=== PATIENT | female | born 1945 | race Two or more races ===

== ENCOUNTER 2020-11-30 12:04 | Outpatient (REF) | payer MEDICARE, SELFPAY ==
--- NOTE | 2020-11-30 12:12 | XR_ITS ---
EXAMINATION: XR CHEST CLINICAL INFORMATION: R06.02 - Shortness of breath. History COVID. COMPARISON: Outside chest radiographs 10/20/2020, 03/03/2020, and outside CTA chest 10/20/2020 ([facility]). TECHNIQUE: 2 views of the chest were obtained. FINDINGS: There is patchy bilateral scattered groundglass opacities predominantly mid and lower zones with apical sparing and slightly greater on right. Findings are decreased from prior outside exam 10/20/2020. Heart is borderline enlarged. The vascularity is normal. There is no effusion. The hilar and mediastinal contours and bony structures are unremarkable. XR/XR chest 2V IMPRESSION: Patchy bilateral scattered groundglass opacities decreased from prior outside imaging 10/20/2020.
== END 2020-11-30 12:05 | disposition home or self-care (01) ==
LOC: HO.HMGCX 12:04
PROVIDERS: PCP Internal Medicine; Visit Provider Nurse Practitioner Family
DX: R06.02 Shortness of breath (principal)
CPT/HCPCS: 71046

== ENCOUNTER 2020-11-30 13:06 | Emergency (ER) | payer MEDICARE, SELFPAY ==
[2020-11-30 13:24] VITALS: BP 141/86; PULSE 86; RESP 22; TEMP 37.4; O2SAT 90; BMI 12.3
--- NOTE | 2020-11-30 13:36 | CT_ITS ---
EXAMINATION: CT CHEST AND CT ABDOMEN PELVIS WITHOUT CONTRAST. CLINICAL INFORMATION: Right flank pain. Right-sided chest pain. COMPARISON: Chest x-ray performed today at 11/30/2011 CTA chest 10/20/2020 TECHNIQUE: 5 mm thin axial and reformatted 3 mm thin sagittal and coronal images of chest, abdomen and pelvis were obtained without contrast. DLP 1000 mGy FINDINGS: Chest: The lungs are hyperinflated with diffuse interstitial thickening, scattered parenchymal opacity, subpleural reticular changes and patchy groundglass attenuation. This findings have improved since CT chest 10/20/2020. Findings are consistent with chronic inflammatory changes. No acute pneumonic new consolidation, mass or significant pulmonary nodular disease seen. The heart size is enlarged with coronary artery calcifications. There is normal aeration of the trachea and bronchi. No abnormal size mediastinal lymph nodes seen. No pericardial effusion seen. The thyroid lobes are symmetrical. There is no pleural effusion or thickening. There is no abnormal axillary lymph nodes. The chest wall appears unremarkable. Abdomen and pelvis: The liver is homogeneous in density, normal size and contour without focal lesion. No intrahepatic ductal dilatation seen either. The gallbladder has been surgically removed. Visualized spleen, pancreas and adrenal glands are unremarkable. Both kidneys are normal size, shape and position. There are no radiopaque renal calculi or hydronephrosis. The abdominal aorta is normal caliber. No retroperitoneal lymph nodes or mass seen. There is scattered stool and gas seen throughout the colon without significant distention. The small bowel loops are normal caliber. The stomach is nondistended. Appendix is not seen. The abdominal wall appears unremarkable. Imaging to the pelvis reveals no significant abnormality. Bone windows reveal moderate spondylosis mid thoracic spine. There is L3, L4 and L5 posterior vertebral fusion with hardware in place for L3 over L4 and L4 over L5 grade 1 anterolisthesis. No visible rib fractures seen especially no right rib fractures seen. Lumbar lordosis is maintained. CT/CT abdomen pelvis wo con IMPRESSION: Extensive bilateral chronic interstitial lung inflammatory changes but improved since September. No cord consolidation or pleural effusion seen. No large mediastinal or hilar lymphadenopathy seen. No acute intra-abdominal process seen. Especially there is no right-sided liver abnormality or rib fracture. No radiopaque urolith either. L3 over L4 and L4 over L5 anterolisthesis stabilized by posterior hardware.
--- NOTE | 2020-11-30 13:37 | ECG_ITS ---
Test Reason : SOB Blood Pressure : / mmHG Vent. Rate : 097 BPM Atrial Rate : 097 BPM P-R Int : 126 ms QRS Dur : 074 ms QT Int : 342 ms P-R-T Axes : 047 010 071 degrees QTc Int : 434 ms Normal sinus rhythm Possible Left atrial enlargement Borderline ECG No previous ECGs available Referred By: Lucy Tiwari Electronically Signed By:Ashvin Do
--- NOTE | 2020-11-30 13:49 | ED_ITS ---
HPI - Back Pain/Injury General Chief Complaint: Dyspnea Stated Complaint: flu like Time Seen by Provider: 11/30/20 13:25 Source: patient and family Mode of arrival: ambulatory Limitations: no limitations History of Present Illness HPI Narrative: 75 yo female with hx of DM, HTN, on eliquis for PEs - dx with COVID in September treated at [facility] she has been on O2 since then today she went to urgent care center and had CXR - told it was COVID and sent to ED, her CXR is somewhat better from her September imaging, she c/o mostly R lower back pain denies pleuritic chest pain and is always compliant with her AC therapy, family brought her from urgent care for further workup patient c/o R sided neck pain hurts to touch and movement most pain is on the right side she feels her breathing is worse at this time MD elicited complaint: back pain and other (R flank pain, R neck pain, feels short of breath) Pertinent past history: other (recent COVID illness complicated by hypoxia and PEs on alf O2) Onset (ago): day(s) (2) Timing: constant Severity: severe Similar Symptoms Previously: No Quality: aching Location: right flank and right lower back Radiation: none Exacerbating factors: movement Relieving factors: none Associated symptoms: increased urinary urgency, increased urinary frequency and dysuria Work related injury: No Related Data Home Medications Medication Instructions Recorded Confirmed apixaban 5 mg tablet 5 mg PO BID 11/30/20 lisinopril 2.5 mg tablet 2.5 mg PO DAILY 11/30/20 metformin 500 mg tablet 500 mg PO DAILY 11/30/20 metoprolol tartrate 50 mg tablet 50 mg PO BID 11/30/20 sertraline 25 mg tablet 25 mg PO DAILY 11/30/20 simvastatin 40 mg tablet 40 mg PO DAILY 11/30/20 Previous Rx's Medication Instructions Recorded cyclobenzaprine 10 mg PO TID PRN #14 tab 11/30/20 hydrocodone-acetaminophen 1 tab PO Q6H PRN #12 tab 11/30/20 lidocaine 1 patch TOPICAL DAILY PRN #10 ea 11/30/20 Allergies Allergy/AdvReac Type Severity Reaction Status Date / Time No Known Allergies Allergy Verified 11/30/20 13:28 Review of Systems Review of Systems: Constitutional : No Weight loss, No Fever, pos Chills, pos Fatigue, pos Malaise ENT/Mouth : No sore throat, No Rhinorrhea, pos neck pain Eyes: No Eye Pain, No Swelling, No Redness Cardiovascular : No Chest Pain, pos SOB, No Dyspnea on Exertion, No Orthopnea, No Edema, No Palpitations Respiratory : No Cough, No Sputum, No Wheezing Gastrointestinal : No Nausea, No Vomiting, No Diarrhea, No Constipation, No abdominal Pain, No Hematochezia, No Melena Genitourinary : pos Dysuria, No Urinary Frequency, No Hematuria, Musculoskeletal : No joint pain, No Myalgias, No Joint Swelling, pos right lower back pain Skin : No Skin Lesions, No rash Neuro : No Weakness, No Numbness, No Dizziness, No Headache Psych : No Anxiety/Panic, No Depression Heme/Lymph: No Bruising, No Bleeding,No Lymphadenopathy Endocrine : No Polyuria, No Polydipsia All other systems reviewed and are negative [facility] Past Medical History Attestation statement: The following information was validated with the patient. Medical History COVID-19 Depression Diabetes High cholesterol HTN (hypertension) Pulmonary emboli Social History Social History Alcohol intake: never Smoking Status: Never smoker Use of substances other than those prescribed or required for medical reasons: No Advance Directives: No Advance Directives Information Provided: No Physical Exam Vital Signs: Vital Signs: Last Vital Signs Temp 99.3 F 11/30/20 13:24 Pulse 97 11/30/20 15:15 Resp 18 11/30/20 15:15 BP 136/82 11/30/20 15:15 Pulse Ox 100 11/30/20 15:15 Body Mass Index 12.3 Appearance: Alert. Oriented X3. No acute distress. Eyes: Pupils equal, round and reactive to light. ENT: Pharynx normal. Neck: no meningeal signs R trapezius ttp CVS: Normal heart rate and rhythm. Pulses normal. Respiratory: No respiratory distress. Breath sounds decreased Abdomen: Soft and nontender. Back: R lower back ttp along quadratus Skin: Skin warm and dry. Normal skin color. Normal skin turgor. Extremities: No lower extremity edema. No calf ttp Neuro: Oriented X 3. No motor deficit. No sensory deficit. Course Course Course Narrative: imaging negative, CT scan improved, seems MSK in nature, at this time can be DC MDM - Back Pain/Injury MDM Narrative Medical decision making narrative: 75 yo female with recent COVID illness in September requiring O2 on DC and now on eliquis for PE - here with increased dyspnea and right lower back pain atraumatic in nature no b/b incontinence / saddle anesthesia, also c/o reproduceable R neck pain a lot of her complaint does seem MSK in nature at this time will obtain labs, UA, CT scan of chest and abdomen, doubt PE she is compliant with her medications daily, IV morphine for pain Lab Data Result diagrams: 11/30/20 14:12 11/30/20 14:12 Labs: Lab Results 11/30/20 11/30/20 11/30/20 Range/Units 14:12 14:12 14:12 WBC 8.9 (4.8-10.8) X10*3/uL RBC 4.02 L (4.20-5.50) X10*6/uL Hgb 12.3 (12.0-16.0) g/dl Hct 38.0 (37-47) % MCV 94.5 (80-98) fL MCH 30.6 (27.0-33.0) pg MCHC 32.4 (31.0-35.0) g/dl RDW 15.2 (11.0-16.0) % Plt Count 162 (160-400) X10*3/uL MPV 11.8 (9.4-12.3) fL Immature Gran % (Auto) 0.3 (0.0-0.4) % Neut % (Auto) 73.5 H (45-73) % Lymph % (Auto) 14.9 L (20-40) % [place] % (Auto) 9.9 (2-11) % Eos % (Auto) 1.2 (0-4) % Baso % (Auto) 0.2 (0-2) % Lymph # (Auto) 1.3 (1.2-4.9) X10*3/uL [place] # (Auto) 0.9 (0.1-1.2) X10*3/uL Eos # (Auto) 0.1 (0.0-0.4) X10*3/uL Baso # (Auto) 0.0 (0.0-0.2) X10*3/uL Abs Immat Gran (auto) 0.03 (0.00-0.03) X10*3/uL Absolute Neuts (auto) 6.5 (2.0-8.3) X10*3/uL Absolute Nucleated RBC 0.000 (0.0-0.012) X10*3/uL Nucleated RBC % (auto) 0.0 (0.0-0.2) /100WBC PT 14.9 H (10.8-13.0) SEC INR 1.3 H (0.9-1.1) APTT 37.7 (24.1-38.0) SEC Sodium 142 (135-145) mmol/L Potassium 4.3 (3.3-5.1) mmol/l Chloride 106 (96-108) mmol/L Carbon Dioxide 25 (22-29) mmol/L Anion Gap 15 (12-20) BUN 6 L (9-16) mg/dL Creatinine 0.78 (0.5-1.4) mg/dL Estim Creat Clear Calc 31.1 Estimated GFR > 60 Random Glucose 107 (60-115) mg/dL Calcium 9.2 (8.4-10.2) mg/dL Magnesium (1.6-2.6) mg/dL Total Bilirubin (0.0-1.0) mg/dL Direct Bilirubin (0.0-0.5) mg/dL AST (5-31) U/L ALT (0-31) U/L Alkaline Phosphatase (39-117) U/L Troponin I High Sens (<3.5-17.0) ng/L Total Protein (6.5-8.0) g/dL Albumin (3.5-5.0) g/dL Lipase (8-78) U/L Urine Color Urine Appearance Urine pH (5.0-8.0) Ur Specific [place] (1.005-1.025) Urine Protein (NEG-TRACE) MG/DL Urine Glucose (UA) (NEG) MG/DL Urine Ketones (NEG) MG/DL Urine Blood (NEG) Urine Nitrite (NEG) Ur Leukocyte Esterase (NEG) 11/30/20 11/30/20 11/30/20 Range/Units 14:12 14:12 16:05 WBC (4.8-10.8) X10*3/uL RBC (4.20-5.50) X10*6/uL Hgb (12.0-16.0) g/dl Hct (37-47) % MCV (80-98) fL MCH (27.0-33.0) pg MCHC (31.0-35.0) g/dl RDW (11.0-16.0) % Plt Count (160-400) X10*3/uL MPV (9.4-12.3) fL Immature Gran % (Auto) (0.0-0.4) % Neut % (Auto) (45-73) % Lymph % (Auto) (20-40) % [place] % (Auto) (2-11) % Eos % (Auto) (0-4) % Baso % (Auto) (0-2) % Lymph # (Auto) (1.2-4.9) X10*3/uL [place] # (Auto) (0.1-1.2) X10*3/uL Eos # (Auto) (0.0-0.4) X10*3/uL Baso # (Auto) (0.0-0.2) X10*3/uL Abs Immat Gran (auto) (0.00-0.03) X10*3/uL Absolute Neuts (auto) (2.0-8.3) X10*3/uL Absolute Nucleated RBC (0.0-0.012) X10*3/uL Nucleated RBC % (auto) (0.0-0.2) /100WBC PT (10.8-13.0) SEC INR (0.9-1.1) APTT (24.1-38.0) SEC Sodium (135-145) mmol/L Potassium (3.3-5.1) mmol/l Chloride (96-108) mmol/L Carbon Dioxide (22-29) mmol/L Anion Gap (12-20) BUN (9-16) mg/dL Creatinine (0.5-1.4) mg/dL Estim Creat Clear Calc Estimated GFR Random Glucose (60-115) mg/dL Calcium (8.4-10.2) mg/dL Magnesium 1.7 (1.6-2.6) mg/dL Total Bilirubin 0.6 (0.0-1.0) mg/dL Direct Bilirubin 0.3 (0.0-0.5) mg/dL AST 20 (5-31) U/L ALT 13 (0-31) U/L Alkaline Phosphatase 87 (39-117) U/L Troponin I High Sens 4.9 (<3.5-17.0) ng/L Total Protein 7.0 (6.5-8.0) g/dL Albumin 4.2 (3.5-5.0) g/dL Lipase 24 (8-78) U/L Urine Color YELLOW Urine Appearance CLEAR Urine pH 5.5 (5.0-8.0) Ur Specific [place] >= 1.030 H (1.005-1.025) Urine Protein NEG (NEG-TRACE) MG/DL Urine Glucose (UA) NEG (NEG) MG/DL Urine Ketones 5 (NEG) MG/DL Urine Blood NEG (NEG) Urine Nitrite NEG (NEG) Ur Leukocyte Esterase NEG (NEG) ECG Data Attestation: I personally reviewed and interpreted this ECG as follows: ECG interpretation date: 11/30/20 ECG interpretation time: 14:23 Interpretation: Rate: 97 Rhythm: NSR [place]: normal Normal P waves. Normal JAYLON. Normal QRS complex. poor R wave progression ST T wave : normal qTC: normal prior studies: no acute ischemia The study has been interpreted contemporaneously by me. . Discharge Plan Discharge Clinical Impression: Acute neck pain Back pain Qualifiers: Back pain location: low back pain Chronicity: acute Back pain laterality: right Sciatica presence: without sciatica Qualified Code(s): M54.5 - Low back pain Patient Disposition: Home, Self-Care Instructions: Acute Low Back Pain (ED) Additional Instructions: return to ED for any worsening symptoms or concerns YOUR CHEST CT IS IMPROVED FROM SEPTEMBER 2020 Prescriptions: New cyclobenzaprine 10 mg tablet 10 mg PO TID PRN (Reason: muscle spasm) Qty: 14 RF: 0 lidocaine 4 % adhesive patch,medicated 1 patch topical DAILY PRN (Reason: pain) Qty: 10 RF: 0 hydrocodone-acetaminophen 5-325 mg tablet 1 tab PO Q6H PRN (Reason: pain) Qty: 12 RF: 0 No Action sertraline 25 mg tablet 25 mg PO DAILY RF: 0 simvastatin 40 mg tablet 40 mg PO DAILY RF: 0 lisinopril 2.5 mg tablet 2.5 mg PO DAILY RF: 0 metformin 500 mg tablet 500 mg PO DAILY RF: 0 metoprolol tartrate 50 mg tablet 50 mg PO BID RF: 0 Eliquis 5 mg tablet 5 mg PO BID RF: 0 Referrals: Boni Torres MD [Primary Care Provider] - 2 days (IF NOT BETTER)
[2020-11-30 14:15] VITALS: RESP 27
[2020-11-30] MEDS: ondansetron HCL 4 MG/2 ML VIAL IVPUSH (14:15)
[2020-11-30] MEDS: Morphine Sulfate 4 MG/ML CARTRIDGE IVPUSH (14:15)
[2020-11-30 14:22] LABS: MANUAL DIFF FLAG NO
[2020-11-30 14:25] LABS: Basophils Percent Auto 0.2 % (0-2); Eosinophils Absolute Auto 0.1 X10*3/uL (0.0-0.4); Eosinophils Percent Auto 1.2 % (0-4); Hemoglobin 12.3 g/dl (12.0-16.0); Imm Gran Abs Auto 0.03 X10*3/uL (0.00-0.03); Imm Gran Pct Auto 0.3 % (0.0-0.4); Lymphocytes Absolute Auto 1.3 X10*3/uL (1.2-4.9); Lymphocytes Percent Auto 14.9 % (20-40); Mean Corpuscular HGB Conc 32.4 g/dl (31.0-35.0); Mean Corpuscular Hemoglobin 30.6 pg (27.0-33.0); Mean Corpuscular Volume 94.5 fL (80-98); Mean Platelet Volume 11.8 fL (9.4-12.3); Monocytes Absolute Auto 0.9 X10*3/uL (0.1-1.2); Monocytes Percent Auto 9.9 % (2-11); Neutrophils Absolute Auto 6.5 X10*3/uL (2.0-8.3); Neutrophils Percent Auto 73.5 % (45-73); Platelet Count 162 X10*3/uL (160-400); Red Blood Count 4.02 X10*6/uL (4.20-5.50); Red Cell Distribution Width 15.2 % (11.0-16.0); White Blood Count 8.9 X10*3/uL (4.8-10.8)
[2020-11-30 14:30] LABS: INTERNATIONAL NORM RATIO 1.3 (0.9-1.1); Prothrombin Time 14.9 SEC (10.8-13.0)
[2020-11-30 14:33] LABS: Partial Thromboplastin Time 37.7 SEC (24.1-38.0)
[2020-11-30 14:59] LABS: Troponin-I High Sensitivity 4.9 ng/L (<3.5-17.0)
[2020-11-30 15:09] LABS: Alanine Aminotransferase 13 U/L (0-31); Albumin Level 4.2 g/dL (3.5-5.0); Alkaline Phosphatase 87 U/L (39-117); Aspartate Amino Transferase 20 U/L (5-31); Bilirubin Direct 0.3 mg/dL (0.0-0.5); Bilirubin Total 0.6 mg/dL (0.0-1.0); Lipase 24 U/L (8-78); Magnesium 1.7 mg/dL (1.6-2.6)
[2020-11-30] MEDS: Lidocaine 4 % Patch ADH..PATCH 1 PATCH TRANSDERMA (15:11)
[2020-11-30 15:15] VITALS: BP 136/82; PULSE 97; RESP 18; O2SAT 100
[2020-11-30 15:18] LABS: Anion Gap 15 (12-20); Blood Urea Nitrogen 6 mg/dL (9-16); Calcium 9.2 mg/dL (8.4-10.2); Carbon Dioxide 25 mmol/L (22-29); Chloride 106 mmol/L (96-108); Creatinine Clr Calc Pharmacy 31.1; Estimated Glomerular Filt Rate > 60; Glucose Random 107 mg/dL (60-115); Potassium 4.3 mmol/l (3.3-5.1); Sodium 142 mmol/L (135-145)
--- NOTE | 2020-11-30 16:15 | PC.NURSE ---
WHILE RESTING UPRIGHT IN BED S/P PAIN MEDICATION PT REPORTED NOTABLE IMPROVEMENT, PT THEN AMBULATED TO TO PROVIDE URINE SAMPLE AND REPORTED THAT PAIN CAME BACK TO PRE-MEDICATION LEVEL. PT AWAITING LAB RESULTS AND DISPO.
[2020-11-30 16:21] LABS: Glucose Urine UA NEG (NEG); Leukocyte Esterase Urine NEG (NEG); Nitrite Urine NEG (NEG); PH 5.5 (5.0-8.0); Specific Gravity - Urine >= 1.030 (1.005-1.025); Urine Blood NEG (NEG); Urine Ketones 5 MG/DL (NEG); Urine Protein NEG (NEG-TRACE)
[2020-11-30 16:23] LABS: Color Urine YELLOW
[2020-11-30 16:24] LABS: Appearance Urine CLEAR
== END 2020-11-30 16:56 | disposition home or self-care (01) ==
PROVIDERS: Emergency Provider Emergency Medicine; PCP Internal Medicine
DX: M54.2 Cervicalgia (principal); M54.41 Lumbago with sciatica, right side; Z86.16 Personal history of COVID-19; E11.9 Type 2 diabetes mellitus without complications; I10 Essential (primary) hypertension; Z86.711 Personal history of pulmonary embolism; Z79.84 Long term (current) use of oral hypoglycemic drugs; Z79.899 Other long term (current) drug therapy; Z99.81 Dependence on supplemental oxygen
CPT/HCPCS: 36415; 71250; 74176; 80048; 80076; 81003; 83690; 83735; 84484; 85025; 85610; 85730; 87040; 93005; 96374; 96375; 99284; J2270; J2405

== ENCOUNTER 2021-03-09 12:36 | Outpatient (REF) | payer MEDICARE, SELFPAY ==
--- NOTE | ~2021-03-09 | XR_ITS ---
EXAMINATION: XR BILATERAL HANDS CLINICAL INFORMATION: Bilateral hand pain. COMPARISON: None. TECHNIQUE: 3 views each hand. FINDINGS: Left Hand: There is loss of PIP and DIP joint space with moderate periarticular spurring. The MCP joints maintain normal. No fracture seen. A small bony erosive changes 2nd and 3rd DIP joints and PIP joints second digit. No visible acute fracture or dislocation seen. Minimal soft tissue swelling seen along the PIP joint 1st digit and DIP joints 2nd and 3rd digits. Mild loss of first carpometacarpal joint space is noted as well. Right Hand: There is loss of PIP and DIP joints of all digits with periarticular spurring. A small bony erosive changes DIP joint 2nd and 3rd digits. There is mild deformity of the DIP joint 2nd and 5th digits. No acute fracture or lytic process seen. There is moderate loss of joint space with periarticular spurring 1st carpometacarpal joint. There is mild soft tissue swelling PIP and DIP joints 2nd and 4th digits. No acute fracture or dislocation seen. 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 No visible acute fracture or dislocation seen.
--- NOTE | ~2021-03-09 | XR_ITS ---
EXAMINATION: XR SHOULDER, RIGHT CLINICAL INFORMATION: Pain COMPARISON: Right shoulder x-ray April [address] November 2020 TECHNIQUE: AP external rotation, Grashey, scapular Y, and axillary views of the right shoulder. FINDINGS: Bone alignment is normal. No fracture or dislocation is seen. The glenohumeral joint is normal. There is arthritis at the acromioclavicular joint. Soft tissues are unremarkable. There are increased interstitial markings seen in the right lung. This is probably not appreciably changed from previous chest CT. XR/XR shoulder RT min 2V IMPRESSION: Arthritis at the right acromioclavicular joint.
--- NOTE | ~2021-03-09 | XR_ITS ---
EXAMINATION: XR BILATERAL HANDS CLINICAL INFORMATION: Bilateral hand pain. COMPARISON: None. TECHNIQUE: 3 views each hand. FINDINGS: Left Hand: There is loss of PIP and DIP joint space with moderate periarticular spurring. The MCP joints maintain normal. No fracture seen. A small bony erosive changes 2nd and 3rd DIP joints and PIP joints second digit. No visible acute fracture or dislocation seen. Minimal soft tissue swelling seen along the PIP joint 1st digit and DIP joints 2nd and 3rd digits. Mild loss of first carpometacarpal joint space is noted as well. Right Hand: There is loss of PIP and DIP joints of all digits with periarticular spurring. A small bony erosive changes DIP joint 2nd and 3rd digits. There is mild deformity of the DIP joint 2nd and 5th digits. No acute fracture or lytic process seen. There is moderate loss of joint space with periarticular spurring 1st carpometacarpal joint. There is mild soft tissue swelling PIP and DIP joints 2nd and 4th digits. No acute fracture or dislocation seen. 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 No visible acute fracture or dislocation seen.
[2021-03-09 13:53] LABS: Glucose Urine UA NEG (NEG); Leukocyte Esterase Urine NEG (NEG); Nitrite Urine NEG (NEG); PH 5.5 (5.0-8.0); Specific Gravity - Urine 1.025 (1.005-1.025); Urine Blood NEG (NEG); Urine Ketones NEG (NEG); Urine Protein NEG (NEG-TRACE)
[2021-03-09 13:55] LABS: Appearance Urine CLEAR; Color Urine YELLOW
[2021-03-09 13:57] LABS: MANUAL DIFF FLAG NO
[2021-03-09 14:15] LABS: Basophils Percent Auto 0.6 % (0-2); Eosinophils Absolute Auto 0.2 X10*3/uL (0.0-0.4); Eosinophils Percent Auto 2.7 % (0-4); Hemoglobin 13.9 g/dl (12.0-16.0); Imm Gran Abs Auto 0.02 X10*3/uL (0.00-0.03); Imm Gran Pct Auto 0.3 % (0.0-0.4); Lymphocytes Absolute Auto 2.3 X10*3/uL (1.2-4.9); Lymphocytes Percent Auto 33.6 % (20-40); Mean Corpuscular HGB Conc 31.6 g/dl (31.0-35.0); Mean Corpuscular Hemoglobin 28.5 pg (27.0-33.0); Mean Corpuscular Volume 90.2 fL (80-98); Mean Platelet Volume 12.2 fL (9.4-12.3); Monocytes Absolute Auto 0.6 X10*3/uL (0.1-1.2); Monocytes Percent Auto 8.5 % (2-11); Neutrophils Absolute Auto 3.8 X10*3/uL (2.0-8.3); Neutrophils Percent Auto 54.3 % (45-73); Platelet Count 183 X10*3/uL (160-400); Red Blood Count 4.88 X10*6/uL (4.20-5.50); Red Cell Distribution Width 14.8 % (11.0-16.0)
[2021-03-09 14:19] LABS: Creatinine Urine 96.25 mg/dL; Microalbum/Creatinine Ratio Ur 5.1 ug/mg cr
[2021-03-09 14:40] LABS: TSH reflex Free T4 1.52 uIU/mL (0.32-4.0)
[2021-03-09 14:42] LABS: Alanine Aminotransferase 26 U/L (0-31); Albumin Level 4.5 g/dL (3.5-5.0); Alkaline Phosphatase 103 U/L (39-117); Anion Gap 14 (12-20); Aspartate Amino Transferase 30 U/L (5-31); Bilirubin Total 0.5 mg/dL (0.0-1.0); Blood Urea Nitrogen 21 mg/dL (9-16); C Reactive Protein 0.07 mg/dL (< or = 0.50); Calcium 10.5 mg/dL (8.4-10.2); Carbon Dioxide 23 mmol/L (22-29); Chloride 107 mmol/L (96-108); Cholesterol 159 mg/dL; Estimated Glomerular Filt Rate 57; Glucose Fasting 101 mg/dL (60-99); HDL Cholesterol 57 mg/dL; LDL Cholesterol Calculated 82 mg/dl; Potassium 5.3 mmol/L (3.3-5.1); Rheumatoid Factor 19.8 IU/mL (<15.0); Sodium 139 mmol/L (135-145); Total Protein 7.5 g/dL (6.5-8.0); Triglycerides 100 mg/dL
[2021-03-09 15:12] LABS: Erythrocyte Sedimentation Rate 14 MM/HR (0-20)
[2021-03-11 07:54] LABS: HBc Num1 0.08 S/CO (0.00-0.79); Hepatitis B Core Antibody Nonreactive (Nonreactive); ~HepC Num1 0.14 S/CO (0.00-0.79); ~Hepatitis A Antibody IgM Nonreactive (Nonreactive); ~Hepatitis C Antibody Nonreactive (Nonreactive)
[2021-03-11 08:09] LABS: Hepatitis B Surface Antigen Negative (Negative)
[2021-03-11 08:48] LABS: HBS Num1 0.86 mIU/mL (0-7.99); HBsAGNum1 0.17 S/CO (0.00-0.99); ~Hepatitis B Surface Antibody NONREACTIVE (Nonreactive)
[2021-03-11 13:36] LABS: Cyclic Citrullinated Peptide <16 UNITS
[2021-03-16 12:31] LABS: Vitamin D 25-OH, D2 <4 ng/mL; Vitamin D 25-OH, D3 38 ng/mL; Vitamin D 25-OH, Total 38 ng/mL (30-100)
== END 2021-03-09 12:37 | disposition home or self-care (01) ==
LOC: HO.LAB 12:36
PROVIDERS: PCP Internal Medicine; Visit Provider Student in an Organized Health Care Education/Training Program
DX: M25.50 Pain in unspecified joint (principal); Z78.0 Asymptomatic menopausal state; E11.9 Type 2 diabetes mellitus without complications; I10 Essential (primary) hypertension; E78.00 Pure hypercholesterolemia, unspecified; E66.3 Overweight
CPT/HCPCS: 36415; 73030; 73130; 80053; 80061; 81003; 82043; 82306; 84443; 85025; 85652; 86140; 86200; 86431; 86704; 86706; 86709; 86803; 87340; 99202

== ENCOUNTER 2021-04-20 11:33 | Outpatient (REF) | payer MEDICARE, SELFPAY ==
--- NOTE | ~2021-04-20 | MM_ITS ---
EXAMINATION: BONE DENSITOMETRY CLINICAL INDICATION: Asymptomatic menopausal state. COMPARISON: None (current study represents initial baseline exam). Otherwise, comparison is made to CT abdomen and pelvis 11/30/2020. TECHNIQUE: Using a [employer] DXA System (software version: 13.1) manufactured by [employer], dual-energy x-ray absorptiometry was performed of the lumbar spine and left hip. The images are of good technical quality. Summary results are attached. FINDINGS: AP SPINE L1-L2 (excluding L3 and L4): The data of L1-L4 has been changed to exclude the L3 and L4 vertebral bodies, because fusion hardware at these levels may cause overestimation of lumbar spine density. BMD 1.102 g/cm2, Z-score 0.8, T-score -0.5, normal. LEFT FEMUR, NECK: BMD 0.895 g/cm2, Z-score 0.7, T-score -1.0, normal. LEFT FEMUR, TOTAL: BMD 0.971 g/cm2, Z-score 1.3, T-score -0.3, normal. IDENTIFIED RISK FACTORS: Rheumatoid arthritis. Early menopause, secondary osteoporosis hysterectomy, bilateral oophorectomy. HISTORY OF FRACTURE: None listed. MEDICATIONS: Multivitamin. MM/XR DEXA axial skeleton IMPRESSION: 1. DIAGNOSIS: Normal bone density based on the lowest T-score value of -1.0 in the femoral neck applying World Health Organization criteria. 2. 10-YEAR FRACTURE RISK PREDICTION, FRAX: Major osteoporotic fracture (clinical spine, forearm, hip or shoulder) 8.0%. Hip fracture 1.5%. 3. Treatment Recommendations: NOF guidelines recommend consideration for treatment in postmenopausal women and men age 50 and older presenting with the following: -A hip or vertebral (clinical or morphometric) fracture. -T-score less than or equal to -2.5 at the femoral neck or spine after appropriate evaluation to exclude secondary causes. -Low bone mass at the hip or spine and a 10-year fracture probability by FRAX of greater than or equal to 3% for hip fracture or greater than or equal to 20% for major osteoporotic fracture based on the [place] adapted WHO algorithm. 4. Other Recommendations: All treatment decisions require clinical judgment and consideration of individual patient factors, including patient preferences, comorbidities, previous drug use, risk factors not captured in the FRAX model (e.g. frailty, falls, vitamin D deficiency, increased bone turnover, interval significant decline in bone density) and possible under or overestimation of fracture risk by FRAX. FUTURE SCAN RECOMMENDATION: People with diagnosed cases of osteoporosis or at high risk for fracture should have regular bone mineral density tests. For patients eligible for Medicare, routine testing is allowed once every 2 years. The testing frequency can be increased to one year for patients who have rapidly progressing disease, those who are receiving or discontinuing medical therapy to restore bone mass, or have additional risk factors.
== END 2021-04-20 11:34 | disposition home or self-care (01) ==
LOC: HO.MAMMO 11:33
PROVIDERS: Visit Provider Student in an Organized Health Care Education/Training Program
DX: M81.8 Other osteoporosis without current pathological fracture (principal); M06.9 Rheumatoid arthritis, unspecified; Z90.710 Acquired absence of both cervix and uterus; Z90.722 Acquired absence of ovaries, bilateral; Z78.0 Asymptomatic menopausal state
CPT/HCPCS: 77080

== ENCOUNTER → 2021-04-22 13:49 | Outpatient (BNVA) | payer MEDICARE, SELFPAY | PROVIDERS: Visit Provider Student in an Organized Health Care Education/Training Program | DX: M25.50 Pain in unspecified joint (principal); E83.52 Hypercalcemia; Z78.0 Asymptomatic menopausal state; Z79.899 Other long term (current) drug therapy; Z87.891 Personal history of nicotine dependence | CPT/HCPCS: 99212 ==

== ENCOUNTER 2021-04-26 09:30 | Outpatient (REF) | payer MEDICARE, SELFPAY ==
[2021-04-26 11:01] LABS: Alanine Aminotransferase 28 U/L (0-31); Albumin Level 4.4 g/dL (3.5-5.0); Alkaline Phosphatase 97 U/L (39-117); Anion Gap 13 (12-20); Aspartate Amino Transferase 30 U/L (5-31); Bilirubin Total 0.6 mg/dL (0.0-1.0); Blood Urea Nitrogen 17 mg/dL (9-16); Carbon Dioxide 27 mmol/L (22-29); Chloride 106 mmol/L (96-108); Estimated Glomerular Filt Rate 58; Glucose Random 104 mg/dL (60-115); Potassium 4.7 mmol/L (3.3-5.1); Sodium 141 mmol/L (135-145); Total Protein 7.2 g/dL (6.5-8.0)
[2021-04-28 09:21] LABS: Calcium (PTHI) 9.8 mg/dL (8.6-10.4); PTHI 46 pg/mL (14-64)
== END 2021-04-26 09:31 | disposition home or self-care (01) ==
LOC: HO.LAB 09:30
PROVIDERS: Absent Provider Internal Medicine; PCP Internal Medicine; Visit Provider Student in an Organized Health Care Education/Training Program
DX: E83.52 Hypercalcemia (principal); M25.50 Pain in unspecified joint
CPT/HCPCS: 36415; 80053; 83970

== ENCOUNTER 2021-09-22 11:11 | Outpatient (REF) | payer MEDICARE, SELFPAY ==
--- NOTE | ~2021-09-22 | MM_ITS ---
EXAMINATION: MM SCREENING DIGITAL BREAST TOMOSYNTHESIS, BILATERAL CLINICAL INFORMATION: Screening. Asymptomatic. The lifetime risk of breast cancer based on the Tyrer-Cuzick Model is 2.1%. COMPARISON: Mammography: None TECHNIQUE: Digital breast tomosynthesis is performed in both the craniocaudal and mediolateral oblique views along with computer-aided detection (CAD). Synthesized 2-D images are generated from the tomosynthesis. FINDINGS: There are scattered areas of fibroglandular density (ACR BI-RADS breast composition Category b). No suspicious left breast findings are identified. No abnormal dominant mass or suspicious grouping of microcalcifications. Within the anterior superior aspect of the right breast, there is a grouping of calcifications which appear to be indeterminate for which spot magnification films are recommended. There is also noted to be a circumscribed density about the inferior medial aspect measuring approximately 9 x 6 mm in size. There are some calcified fibroadenomas present, and this may be related to lymph node or noncalcified fibroadenoma. MM/MM tomosynthesis screening BI IMPRESSION: Right breast calcifications and density for which further evaluation is recommended with spot magnification views anterior aspect of the right breast in 90-degree mediolateral and craniocaudal views for the calcifications and ultrasound evaluation of the circumscribed density about the deep inferior medial aspect of the right breast. ASSESSMENT: BI-RADS 0: Incomplete - Need Additional Imaging Evaluation. RECOMMENDATION: 1. Additional views of the right breast. 2. Targeted ultrasound if warranted after review of the additional views. 3. Radiology department staff will contact the patient for additional imaging.
== END 2021-09-22 11:12 | disposition home or self-care (01) ==
LOC: HO.MAMMO 11:11
PROVIDERS: Visit Provider Internal Medicine
DX: Z12.31 Encounter for screening mammogram for malignant neoplasm of breast (principal)
CPT/HCPCS: 77063; 77067

== ENCOUNTER 2021-10-04 10:58 | Outpatient (REF) | payer MEDICARE, SELFPAY ==
--- NOTE | ~2021-10-04 | US_ITS ---
EXAMINATION: MM DIAGNOSTIC DIGITAL MAMMOGRAPHY, RIGHT US DIAGNOSTIC ULTRASOUND BREAST, RIGHT CLINICAL INFORMATION: 76-year-old with new baseline mammography showing two findings for recall: grouped calcifications anterior 12:00 position; and smooth oval nodule posterior medial right breast lower quadrant. Family history breast cancer, sister. The lifetime risk of breast cancer based on the Tyrer-Cuzick Model is 2%. COMPARISON: Mammography: 09/22/2021 (new baseline). TECHNIQUE: Digital mammography is performed in the following views: Magnification right CC, magnification right ML. Ultrasound right breast is targeted to the posterior medial breast using grayscale imaging and color Doppler without and with harmonics. FINDINGS: There are scattered areas of fibroglandular density (ACR BI-RADS breast composition Category b). The magnification views show grouped coarse calcifications anterior 12:00 position, most likely fibroadenomatous change. Calcifications will be reassessed again in 6 months to include magnification views. Ultrasound right breast fails to reveal the smooth benign-appearing circumscribed nodule posterior medial aspect. There is no visible cystic or solid mass or architectural abnormality. The nodule may be reassessed again at time of six-month follow-up. Results are discussed with the patient at time of visit. US/US breast RT limited IMPRESSION: 1. Probable benign grouped coarse calcifications anterior 12:00 position, suspect fibroadenomatous change. 2. Benign-appearing circumscribed nodule posterior medial right breast, ultrasound occult. ASSESSMENT: BI-RADS 3: Probably Benign RECOMMENDATION: Diagnostic right mammography in 6 months to include magnification views. This patient's information was entered into a reminder system with a target due date for their next mammogram.
== END 2021-10-04 10:59 | disposition home or self-care (01) ==
LOC: HO.MAMMO 10:58
PROVIDERS: PCP Internal Medicine; Visit Provider Nurse Practitioner Family
DX: R92.2 Inconclusive mammogram (principal)
CPT/HCPCS: 76642; 77065

== ENCOUNTER 2021-11-11 11:56 | Outpatient (REF) | payer MEDICARE, MEDICAID, SELFPAY ==
--- NOTE | ~2021-11-11 | XR_ITS ---
EXAMINATION: XR CHEST CLINICAL INFORMATION: Cough. COMPARISON: Chest radiograph dated from 11/30/2020. TECHNIQUE: 2 views of the chest were obtained. FINDINGS: Normal appearance of the cardiomediastinal silhouette. Decreased multifocal airspace opacities when compared to November with mild residual interstitial prominence. No pleural effusion or pneumothorax. No acute osseous abnormalities. Partially visualized lumbar fusion hardware. XR/XR chest 2V IMPRESSION: Mild residual interstitial prominence with decreased airspace opacities when compared to studies from November. No new foci of airspace disease.
[2021-11-11 12:21] LABS: MANUAL DIFF FLAG NO
[2021-11-11 12:41] LABS: Basophils Percent Auto 0.3 % (0-2); Eosinophils Absolute Auto 0.3 X10*3/uL (0.0-0.4); Eosinophils Percent Auto 4.4 % (0-4); Hemoglobin 13.8 g/dl (12.0-16.0); Imm Gran Abs Auto 0.01 X10*3/uL (0.00-0.03); Imm Gran Pct Auto 0.1 % (0.0-0.4); Lymphocytes Absolute Auto 2.7 X10*3/uL (1.2-4.9); Lymphocytes Percent Auto 36.8 % (20-40); Mean Corpuscular HGB Conc 32.1 g/dl (31.0-35.0); Mean Corpuscular Hemoglobin 30.5 pg (27.0-33.0); Mean Corpuscular Volume 94.9 fL (80.0-98.0); Mean Platelet Volume 12.5 fL (9.4-12.3); Monocytes Absolute Auto 0.5 X10*3/uL (0.1-1.2); Neutrophils Absolute Auto 3.8 x10*3/uL (2.0-8.3); Neutrophils Percent Auto 51.4 % (45-73); Platelet Count 169 X10*3/uL (160-400); Red Blood Count 4.53 X10*6/uL (4.20-5.50); Red Cell Distribution Width 14.6 % (11.0-16.0); White Blood Count 7.3 X10*3/uL (4.8-10.8)
[2021-11-11 13:09] LABS: Alanine Aminotransferase 23 U/L (0-31); Albumin Level 4.5 g/dL (3.5-5.0); Alkaline Phosphatase 90 U/L (39-117); Anion Gap 15 (12-20); Aspartate Amino Transferase 27 U/L (5-31); Bilirubin Total 0.6 mg/dL (0.0-1.0); Blood Urea Nitrogen 16 mg/dL (9-16); Calcium 10.5 mg/dL (8.4-10.2); Carbon Dioxide 26 mmol/L (22-29); Chloride 107 mmol/L (96-108); Estimated Glomerular Filt Rate 56; Glucose Random 89 mg/dL (60-115); Potassium 5.6 mmol/L (3.3-5.1); Sodium 142 mmol/L (135-145); Total Protein 7.4 g/dL (6.5-8.0)
[2021-11-11 13:24] LABS: TSH reflex Free T4 1.37 uIU/mL (0.32-4.0)
[2021-11-11 13:58] LABS: Appearance Urine CLEAR; Color Urine YELLOW; Glucose Urine UA NEG (NEG); Leukocyte Esterase Urine NEG (NEG); Nitrite Urine NEG (NEG); Specific Gravity - Urine 1.025 (1.005-1.025); Urine Blood NEG (NEG); Urine Ketones NEG (NEG); Urine Protein NEG (NEG-TRACE)
== END 2021-11-11 11:57 | disposition home or self-care (01) ==
LOC: HO.XRAY 11:56
PROVIDERS: PCP Internal Medicine; Visit Provider Nurse Practitioner Family
DX: Z20.822 Contact with and (suspected) exposure to COVID-19 (principal); R05.9 Cough, unspecified; R42 Dizziness and giddiness
CPT/HCPCS: 36415; 71046; 80053; 81003; 84443; 85025; U0003; U0005

== ENCOUNTER 2021-11-11 18:42 | Emergency (ER) | payer MEDICARE, MEDICAID, SELFPAY ==
--- NOTE | 2021-11-11 18:47 | ECG_ITS ---
Test Reason : HIGH POTASSIUM Blood Pressure : / mmHG Vent. Rate : 094 BPM Atrial Rate : 094 BPM P-R Int : 130 ms QRS Dur : 074 ms QT Int : 342 ms P-R-T Axes : 052 003 083 degrees QTc Int : 427 ms Normal sinus rhythm Normal ECG When compared with ECG of 30-NOV-2020 14:04, No significant change was found Referred By: Generic ED Physician Electronically Signed By:LASHONDA RINCON MD
[2021-11-11 20:40] VITALS: BP 127/87; PULSE 89; RESP 16; TEMP 36.8; O2SAT 100; BMI 31.2
[2021-11-11 21:08] LABS: COVID-19 Test Negative (Negative)
--- NOTE | 2021-11-11 22:03 | ED_ITS ---
HPI - General Adult General Chief complaint: Recheck/Abnormal Lab/Rx Stated complaint: High potassium per md Time Seen by Provider: 11/11/21 22:02 Source: patient and family Mode of arrival: ambulatory Limitations: no limitations History of Present Illness HPI narrative: patient 3 days ago had diarrhea, N/V/D cough and shortness of breath. EKG in the office had an arrhythmia. Potassium was 5.6 and was told to come to the ED. Onset (ago): day(s) Severity: moderate Associated symptoms: cough, malaise and nausea/vomiting Related Data Home Medications Medication Instructions Recorded Confirmed apixaban 5 mg tablet (Eliquis) 5 mg PO BID 11/30/20 11/11/21 Previous Rx's Medication Instructions Recorded blood sugar diagnostic (FreeStyle #100 ea 07/20/21 Lite Strips) blood-glucose meter (FreeStyle #1 ea 07/20/21 Lite Meter) lancets 28 gauge (FreeStyle #100 ea 07/20/21 Lancets) tramadol 50 mg tablet 50 mg PO TID PRN 30 Days #90 tab 07/20/21 lisinopril 2.5 mg tablet 2.5 mg PO DAILY #30 tab 10/10/21 duloxetine 30 mg capsule,delayed 30 mg PO DAILY #30 cap 10/12/21 release metformin 500 mg tablet 500 mg PO DAILY #30 tab 10/12/21 metoprolol tartrate 50 mg tablet 50 mg PO BID #60 tab 10/12/21 simvastatin 40 mg tablet 40 mg PO DAILY #30 tab 10/12/21 [id number]-FY-olggthixljb 2.5 20 ml PO Q4H PRN #118 ml 11/11/21 mg-5 mg-50 mg/5 mL oral liquid (Robitussin Cough and Cold CF) Allergies Allergy/AdvReac Type Severity Reaction Status Date / Time morphine Allergy Intermediate rash Verified 11/11/21 20:45 Review of Systems Constitutional: Constitutional: Reports no additional constitutional complaints Eyes: Eyes: Reports no additional eye complaints ENT: Denies dizziness Cardiovascular: Cardiovascular: Reports no additional cardiovascular complaints Respiratory: Respiratory: Reports as per HPI Gastrointestinal: Gastrointestinal: Reports no additional gastrointestinal complaints Genitourinary: Genitourinary: Reports no additional female genitourinary complaints Musculoskeletal: Musculoskeletal: Reports no additional musculoskeletal complaints Integumentary/Breasts: Skin/Breast: Denies rash Neurologic: Reports system reviewed and no additional complaints, except as documented, Denies dizziness and Denies Sensory deficit (Neuro) Psychiatric: Psychiatric: Denies anxiety PMFSH Past Medical History Medical History Arthritis Benign essential hypertension COVID-19 Depression Diabetes mellitus Osteoarthritis Overweight (BMI 25.0-29.9) Pulmonary embolism Pure hypercholesterolemia Screening for breast cancer Surgical History H/O neck surgery History of back surgery History of colonoscopy History of partial hysterectomy History of total right knee replacement Family History Family History Father Colon cancer Brother Lung cancer Sister Breast cancer Other Family history non-contributory Social History Social History Housing: House Alcohol intake: never Patient Tobacco Use Status: Former Tobacco user Tobacco use type: Cigarette Cigarettes Per Day: 20 Years Smoked: 40 e-Cigarette/Vaping Use: Never Used Advance Directives: No Advance Directives Information Provided: Yes service: No Current occupational status: retired Cognitive needs: No Hearing needs: No Vision needs: Yes (Glasses) Physical Exam Vital Signs: Vital Signs: Last Vital Signs Temp 98.1 F 11/11/21 23:20 Pulse 90 11/11/21 23:20 Resp 15 11/11/21 23:20 BP 147/86 H 11/11/21 23:20 Pulse Ox 99 11/11/21 23:20 BMI result Body Mass Index 31.2 Const: Other: coughing Nutritional Appearance: average body habitus Orientation/consciousness: oriented to person and patient oriented x3 Limitations: no limitations HENMT: Head: Yes normal to inspection Ears: external ears normal General nose exam: Normal external nose present Mouth: Normal oral and palatal mucosa present and oropharynx normal Throat: Yes posterior oropharynx normal Eyes: General: appearance normal, both eyes and all related structures Neck: Other: supple Neck: Yes normal visual inspection Chest: Chest palpation & inspection: normal inspection of the chest Resp: Other: fine rales Cardio: Jugular venous distension: no JVD Rate: regular rate Rhythm: regular rhythm Heart sounds: S1 normal heart sound present and S2 normal heart sound present GI: Inspection: Yes normal to inspection Palpation (GI): Soft to palpation, nontender and No hepatosplenomegaly present Auscultation: normal bowel sounds : General: Yes no CVA tenderness Back/Spine/Pelvis: Back: no CVA tenderness Skin: General skin exam: no rashes or lesions noted Neuro: General: oriented to person and patient oriented x3 Cranial nerves: Yes CN's II-XII intact bilaterally Motor exam (neuro): 5/5 motor strength p resent throughout Sensory Exam: No Sensory deficit (Neuro) Extrem: General: Yes normal to inspection Psych: Appearance: grossly normal Course Reevaluation(s) Reevaluation #1: chest xray from earlier today: IMPRESSION: Mild residual interstitial prominence with decreased airspace opacities when compared to studies from November. No new foci of airspace disease. Reevaluation #2: potassium down to 5, respiratory panel negative, patient with cough will dc with URI, xray shows chronic interstitial infiltrates with slight improvement from prior Time: 23:39 Medical Decision Making Lab Data Result diagrams: 11/11/21 22:02 11/11/21 22:02 Labs: Lab Results 11/11/21 11/11/21 11/11/21 Range/Units 20:46 22:02 22:02 WBC 7.1 (4.8-10.8) X10*3/uL RBC 4.32 (4.20-5.50) X10*6/uL Hgb 13.4 (12.0-16.0) g/dl Hct 40.6 (37.0-47.0) % MCV 94.0 (80.0-98.0) fL MCH 31.0 (27.0-33.0) pg MCHC 33.0 (31.0-35.0) g/dl RDW 14.6 (11.0-16.0) % Plt Count 178 (160-400) X10*3/uL MPV 11.9 (9.4-12.3) fL Immature Gran % (Auto) 0.1 (0.0-0.4) % Neut % (Auto) 47.7 (45-73) % Lymph % (Auto) 37.9 (20-40) % [place] % (Auto) 9.9 (2-11) % Eos % (Auto) 4.1 H (0-4) % Baso % (Auto) 0.3 (0-2) % Lymph # (Auto) 2.7 (1.2-4.9) X10*3/uL [place] # (Auto) 0.7 (0.1-1.2) X10*3/uL Eos # (Auto) 0.3 (0.0-0.4) X10*3/uL Baso # (Auto) 0.0 (0.0-0.2) X10*3/uL Abs Immat Gran (auto) 0.01 (0.00-0.03) X10*3/uL Absolute Neuts (auto) 3.4 (2.0-8.3) x10*3/uL Absolute Nucleated RBC 0.000 (0.0-0.012) X10*3/uL Nucleated RBC % (auto) 0.0 (0.0-0.2) /100WBC Sodium 142 (135-145) mmol/L Potassium 5.0 (3.3-5.1) mmol/L Chloride 107 (96-108) mmol/L Carbon Dioxide 26 (22-29) mmol/L Anion Gap 14 (12-20) BUN 20 H (9-16) mg/dL Creatinine 0.99 (0.5-1.4) mg/dL Estim Creat Clear Calc 48.6 Estimated GFR 54 Random Glucose 96 (60-115) mg/dL Calcium 10.4 H (8.4-10.2) mg/dL Total Bilirubin 0.3 (0.0-1.0) mg/dL AST 24 (5-31) U/L ALT 23 (0-31) U/L Alkaline Phosphatase 88 (39-117) U/L Total Protein 7.3 (6.5-8.0) g/dL Albumin 4.4 (3.5-5.0) g/dL COVID-19 ([facility]) Negative (Negative) COVID-19 Clin Com See Note Influenza Type A (PCR) (Negative) Influenza Type B (PCR) (Negative) RSV RNA Qual (PCR) (Negative) SARS-CoV-2 RNA (RT-PCR) (Negative) 11/11/21 Range/Units 22:40 WBC (4.8-10.8) X10*3/uL RBC (4.20-5.50) X10*6/uL Hgb (12.0-16.0) g/dl Hct (37.0-47.0) % MCV (80.0-98.0) fL MCH (27.0-33.0) pg MCHC (31.0-35.0) g/dl RDW (11.0-16.0) % Plt Count (160-400) X10*3/uL MPV (9.4-12.3) fL Immature Gran % (Auto) (0.0-0.4) % Neut % (Auto) (45-73) % Lymph % (Auto) (20-40) % [place] % (Auto) (2-11) % Eos % (Auto) (0-4) % Baso % (Auto) (0-2) % Lymph # (Auto) (1.2-4.9) X10*3/uL [place] # (Auto) (0.1-1.2) X10*3/uL Eos # (Auto) (0.0-0.4) X10*3/uL Baso # (Auto) (0.0-0.2) X10*3/uL Abs Immat Gran (auto) (0.00-0.03) X10*3/uL Absolute Neuts (auto) (2.0-8.3) x10*3/uL Absolute Nucleated RBC (0.0-0.012) X10*3/uL Nucleated RBC % (auto) (0.0-0.2) /100WBC Sodium (135-145) mmol/L Potassium (3.3-5.1) mmol/L Chloride (96-108) mmol/L Carbon Dioxide (22-29) mmol/L Anion Gap (12-20) BUN (9-16) mg/dL Creatinine (0.5-1.4) mg/dL Estim Creat Clear Calc Estimated GFR Random Glucose (60-115) mg/dL Calcium (8.4-10.2) mg/dL Total Bilirubin (0.0-1.0) mg/dL AST (5-31) U/L ALT (0-31) U/L Alkaline Phosphatase (39-117) U/L Total Protein (6.5-8.0) g/dL Albumin (3.5-5.0) g/dL COVID-19 ([facility]) (Negative) COVID-19 Clin Com Influenza Type A (PCR) NEGATIVE (Negative) Influenza Type B (PCR) NEGATIVE (Negative) RSV RNA Qual (PCR) NEGATIVE (Negative) SARS-CoV-2 RNA (RT-PCR) NEGATIVE (Negative) Discharge Plan Discharge Clinical Impression: Cough Upper respiratory infection Qualifiers: URI type: unspecified URI Qualified Code(s): J06.9 - Acute upper respiratory infection, unspecified Patient Disposition: Home, Self-Care Instructions: Upper Respiratory Infection (ED), Acute Cough (ED) Prescriptions: New Robitussin Cough and Cold CF 2.5-5-50 mg/5 mL liquid 20 ml PO Q4H PRN (Reason: cough) Qty: 118 RF: 0 No Action lisinopril 2.5 mg tablet 2.5 mg PO DAILY Qty: 30 RF: 0 duloxetine 30 mg capsule,delayed release(DR/EC) 30 mg PO DAILY Qty: 30 RF: 1 simvastatin 40 mg tablet 40 mg PO DAILY Qty: 30 RF: 2 metoprolol tartrate 50 mg tablet 50 mg PO BID Qty: 60 RF: 2 metformin 500 mg tablet 500 mg PO DAILY Qty: 30 RF: 2 tramadol 50 mg tablet 50 mg PO TID PRN (Reason: pain) 30 Days Qty: 90 RF: 3 (DME) blood-glucose meter [FreeStyle Lite Meter] Kit See Rx Instructions .Route Qty: 1 RF: 0 (DME) lancets [FreeStyle Lancets] 28 gauge misc See Rx Instructions .ROUTE .MEDSUPPLY Qty: 100 RF: 12 (DME) FreeStyle Lite Strips Strip See Rx Instructions .ROUTE .MEDSUPPLY Qty: 100 RF: 12 Eliquis 5 mg tablet 5 mg PO BID RF: 0 Referrals: Physician,Unknown J [Primary Care Provider] - 1 week
[2021-11-11 22:07] LABS: MANUAL DIFF FLAG NO
[2021-11-11 22:09] LABS: Basophils Percent Auto 0.3 % (0-2); Eosinophils Absolute Auto 0.3 X10*3/uL (0.0-0.4); Eosinophils Percent Auto 4.1 % (0-4); Hematocrit 40.6 % (37.0-47.0); Hemoglobin 13.4 g/dl (12.0-16.0); Imm Gran Abs Auto 0.01 X10*3/uL (0.00-0.03); Imm Gran Pct Auto 0.1 % (0.0-0.4); Lymphocytes Absolute Auto 2.7 X10*3/uL (1.2-4.9); Lymphocytes Percent Auto 37.9 % (20-40); Mean Platelet Volume 11.9 fL (9.4-12.3); Monocytes Absolute Auto 0.7 X10*3/uL (0.1-1.2); Monocytes Percent Auto 9.9 % (2-11); Neutrophils Absolute Auto 3.4 x10*3/uL (2.0-8.3); Neutrophils Percent Auto 47.7 % (45-73); Platelet Count 178 X10*3/uL (160-400); Red Blood Count 4.32 X10*6/uL (4.20-5.50); Red Cell Distribution Width 14.6 % (11.0-16.0); White Blood Count 7.1 X10*3/uL (4.8-10.8)
[2021-11-11 22:25] LABS: Alanine Aminotransferase 23 U/L (0-31); Albumin Level 4.4 g/dL (3.5-5.0); Alkaline Phosphatase 88 U/L (39-117); Anion Gap 14 (12-20); Aspartate Amino Transferase 24 U/L (5-31); Bilirubin Total 0.3 mg/dL (0.0-1.0); Blood Urea Nitrogen 20 mg/dL (9-16); Calcium 10.4 mg/dL (8.4-10.2); Carbon Dioxide 26 mmol/L (22-29); Chloride 107 mmol/L (96-108); Creatinine Clr Calc Pharmacy 48.6; Estimated Glomerular Filt Rate 54; Glucose Random 96 mg/dL (60-115); Sodium 142 mmol/L (135-145); Total Protein 7.3 g/dL (6.5-8.0)
[2021-11-11] MEDS: guaiFENesin 200 MG/10 ML 10 ML LIQUID PO (22:34)
--- NOTE | 2021-11-11 22:35 | PC.NURSE ---
PT MEDICATED WITH COUGH SYRUP. RSV SWAB OBTAINED TO LAB. PT AWAITING FOR PENDING LABS. PT REMAINS ON MONITOR IN NAD. WILL CONTINUE TO MONITOR PT.
[2021-11-11 23:20] VITALS: BP 147/86; PULSE 90; RESP 15; TEMP 36.7; O2SAT 99
[2021-11-11 23:25] LABS: Influenza A PCR NEGATIVE (Negative); Influenza B PCR NEGATIVE (Negative); Resp Syncy Virus RNA Qual PCR NEGATIVE (Negative); SARS COV2 PCR INHOUSE NEGATIVE (Negative)
== END 2021-11-12 00:11 | disposition home or self-care (01) ==
PROVIDERS: Emergency Provider Emergency Medicine
DX: J06.9 Acute upper respiratory infection, unspecified (principal); R05.9 Cough, unspecified; R06.02 Shortness of breath; R79.89 Other specified abnormal findings of blood chemistry; Z20.822 Contact with and (suspected) exposure to COVID-19; Z87.891 Personal history of nicotine dependence; Z79.899 Other long term (current) drug therapy
CPT/HCPCS: 0241U; 36415; 80053; 85025; 87635; 93005; 99283; 99284

== ENCOUNTER → 2021-11-15 12:28 | Outpatient (BNVA) | payer MEDICARE, MEDICAID, SELFPAY | PROVIDERS: PCP Internal Medicine; Visit Provider Nurse Practitioner Family | DX: M25.50 Pain in unspecified joint (principal); M25.561 Pain in right knee; Z78.0 Asymptomatic menopausal state; E83.52 Hypercalcemia | CPT/HCPCS: 99212 ==

== ENCOUNTER 2022-01-24 09:57 | Outpatient (REF) | payer MEDICARE, MEDICAID, SELFPAY ==
[2022-01-24 10:28] LABS: MANUAL DIFF FLAG NO
[2022-01-24 11:00] LABS: Basophils Percent Auto 0.3 % (0-2); Eosinophils Absolute Auto 0.2 X10*3/uL (0.0-0.4); Eosinophils Percent Auto 3.6 % (0-4); Hematocrit 40.7 % (37.0-47.0); Hemoglobin 13.1 g/dl (12.0-16.0); Imm Gran Abs Auto 0.02 X10*3/uL (0.00-0.03); Imm Gran Pct Auto 0.3 % (0.0-0.4); Lymphocytes Absolute Auto 2.2 X10*3/uL (1.2-4.9); Lymphocytes Percent Auto 37.3 % (20-40); Mean Corpuscular HGB Conc 32.2 g/dl (31.0-35.0); Mean Corpuscular Hemoglobin 30.4 pg (27.0-33.0); Mean Corpuscular Volume 94.4 fL (80.0-98.0); Mean Platelet Volume 12.5 fL (9.4-12.3); Monocytes Absolute Auto 0.6 X10*3/uL (0.1-1.2); Neutrophils Absolute Auto 2.8 x10*3/uL (2.0-8.3); Neutrophils Percent Auto 48.5 % (45-73); Platelet Count 165 X10*3/uL (160-400); Red Blood Count 4.31 X10*6/uL (4.20-5.50); Red Cell Distribution Width 13.6 % (11.0-16.0); White Blood Count 5.8 X10*3/uL (4.8-10.8)
[2022-01-24 11:09] LABS: Alanine Aminotransferase 22 U/L (0-31); Albumin Level 4.2 g/dL (3.5-5.0); Alkaline Phosphatase 78 U/L (39-117); Anion Gap 13 (12-20); Aspartate Amino Transferase 27 U/L (5-31); Bilirubin Total 0.4 mg/dL (0.0-1.0); Blood Urea Nitrogen 19 mg/dL (9-16); C Reactive Protein 0.05 mg/dL (< or = 0.50); Calcium 10.2 mg/dL (8.4-10.2); Carbon Dioxide 25 mmol/L (22-29); Chloride 108 mmol/L (96-108); Cholesterol 126 mg/dL; Estimated Glomerular Filt Rate 59; Glucose Fasting 105 mg/dL (60-99); HDL Cholesterol 47 mg/dL; LDL Cholesterol Calculated 64 mg/dl; Potassium 5.6 mmol/L (3.3-5.1); Sodium 140 mmol/L (135-145); Triglycerides 79 mg/dL
[2022-01-24 11:09] LABS: Appearance Urine CLEAR; Color Urine YELLOW; Glucose Urine UA NEG (NEG); Leukocyte Esterase Urine NEG (NEG); Nitrite Urine NEG (NEG); PH 6.5 (5.0-8.0); Specific Gravity - Urine 1.015 (1.005-1.025); Urine Blood NEG (NEG); Urine Ketones NEG (NEG); Urine Protein NEG (NEG-TRACE)
[2022-01-24 11:17] LABS: Estimated Average Glucose 137 mg/dL; Hemoglobin A1c % 6.4 %
[2022-01-24 11:23] LABS: TSH reflex Free T4 1.74 uIU/mL (0.32-4.0); Vitamin D 25-OH Total 25.2 ng/mL (>30)
[2022-01-24 11:48] LABS: Creatinine Urine 81.44 mg/dL; Microalbumin Urine < 5.0 mg/L
[2022-01-24 11:52] LABS: Erythrocyte Sedimentation Rate 11 MM/HR (0-20)
[2022-01-26 15:06] LABS: Calcium (PTHI) 10.4 mg/dL (8.6-10.4); PTHI 34 pg/mL (14-64)
== END 2022-01-24 09:58 | disposition home or self-care (01) ==
LOC: HO.LAB 09:57
PROVIDERS: PCP Internal Medicine; Visit Provider Nurse Practitioner Family
DX: M25.50 Pain in unspecified joint (principal); M25.561 Pain in right knee; Z78.0 Asymptomatic menopausal state; E78.00 Pure hypercholesterolemia, unspecified; E55.9 Vitamin D deficiency, unspecified; E11.9 Type 2 diabetes mellitus without complications; I10 Essential (primary) hypertension
CPT/HCPCS: 36415; 80053; 80061; 81003; 82043; 82306; 83036; 83970; 84443; 85025; 85652; 86140; 99212

== ENCOUNTER 2022-02-01 10:26 | Outpatient (REF) | payer MEDICARE, MEDICAID, SELFPAY ==
--- NOTE | ~2022-02-01 | XR_ITS ---
EXAMINATION: XR KNEE, RIGHT CLINICAL INFORMATION: M25.561 - Pain in right knee COMPARISON: None TECHNIQUE: Three views of the right knee. FINDINGS: There has 2018 been prior total knee arthroplasty. The hardware is intact. There is no fracture, dislocation, destructive process, or osteolysis. There is likely trace fluid suprapatellar bursa. Small fibrous cortical defect suggested upper aspect lateral femoral condyle. There are scattered atherosclerotic calcifications vasculature. XR/XR knee RT 3V IMPRESSION: Status post prior total knee arthroplasty. Hardware intact. No destructive process.
--- NOTE | ~2022-02-01 | XR_ITS ---
EXAMINATION: XR FOOT, RIGHT CLINICAL INFORMATION: M79.671 - Pain in right foot 1 radiology COMPARISON: None TECHNIQUE: AP, lateral, and oblique views of the right foot. FINDINGS: There is no acute or healing fracture, dislocation, destructive process. Bony mineralization is normal. There is no periostitis. There are mild degenerative changes first MTP joint with mild narrowing and small marginal osteophyte. No erosive changes. Remainder of the joints are unremarkable. There is mild spurring distal dorsal talus and moderate spurring posterior and plantar calcaneus. There are some scattered benign round rim calcifications lower anterior lower leg soft tissues. XR/XR foot RT 2V IMPRESSION: 1. Mild degenerative change first MTP. 2. Moderate posterior and plantar calcaneal spurs.
== END 2022-02-01 10:27 | disposition home or self-care (01) ==
LOC: HO.XRAY 10:26
PROVIDERS: Visit Provider Nurse Practitioner Family
DX: M25.561 Pain in right knee (principal); M79.671 Pain in right foot
CPT/HCPCS: 36415; 73562; 73620; 80053

== ENCOUNTER 2022-02-02 09:25 | Outpatient (REF) | payer MEDICARE, MEDICAID, SELFPAY ==
[2022-02-02 10:50] LABS: Alanine Aminotransferase 20 U/L (0-31); Albumin Level 4.3 g/dL (3.5-5.0); Alkaline Phosphatase 88 U/L (39-117); Anion Gap 10 (12-20); Aspartate Amino Transferase 23 U/L (5-31); Bilirubin Total 0.4 mg/dL (0.0-1.0); Blood Urea Nitrogen 21 mg/dL (9-16); Calcium 9.9 mg/dL (8.4-10.2); Carbon Dioxide 28 mmol/L (22-29); Chloride 105 mmol/L (96-108); Estimated Glomerular Filt Rate 54; Glucose Random 135 mg/dL (60-115); Potassium 4.7 mmol/L (3.3-5.1); Sodium 138 mmol/L (135-145)
== END 2022-02-02 09:26 | disposition home or self-care (01) ==
LOC: HO.LAB 09:25
PROVIDERS: Visit Provider Nurse Practitioner Family
DX: E87.5 Hyperkalemia (principal)
CPT/HCPCS: 36415; 80053

== ENCOUNTER 2022-04-04 12:30 | Outpatient (REF) | payer MEDICARE, SELFPAY ==
[2022-04-04 12:49] LABS: MANUAL DIFF FLAG NO
[2022-04-04 12:59] LABS: Basophils Percent Auto 0.3 % (0-2); Eosinophils Absolute Auto 0.1 X10*3/uL (0.0-0.4); Eosinophils Percent Auto 2.3 % (0-4); Imm Gran Abs Auto 0.01 X10*3/uL (0.00-0.03); Imm Gran Pct Auto 0.2 % (0.0-0.4); Lymphocytes Absolute Auto 1.9 X10*3/uL (1.2-4.9); Lymphocytes Percent Auto 30.5 % (20-40); Mean Corpuscular HGB Conc 32.5 g/dl (31.0-35.0); Mean Corpuscular Hemoglobin 30.6 pg (27.0-33.0); Mean Corpuscular Volume 94.1 fL (80.0-98.0); Mean Platelet Volume 11.7 fL (9.4-12.3); Monocytes Absolute Auto 0.6 X10*3/uL (0.1-1.2); Monocytes Percent Auto 9.9 % (2-11); Neutrophils Absolute Auto 3.5 x10*3/uL (2.0-8.3); Neutrophils Percent Auto 56.8 % (45-73); Platelet Count 153 X10*3/uL (160-400); Red Blood Count 4.25 X10*6/uL (4.20-5.50); Red Cell Distribution Width 14.3 % (11.0-16.0); White Blood Count 6.1 X10*3/uL (4.8-10.8)
[2022-04-04 13:44] LABS: Anion Gap 13 (12-20); Blood Urea Nitrogen 18 mg/dL (9-16); Calcium 9.9 mg/dL (8.4-10.2); Carbon Dioxide 26 mmol/L (22-29); Chloride 107 mmol/L (96-108); Estimated Glomerular Filt Rate > 60; Glucose Random 85 mg/dL (60-115); Potassium 4.7 mmol/L (3.3-5.1); Sodium 141 mmol/L (135-145)
[2022-04-04 14:21] LABS: Appearance Urine CLEAR; Color Urine YELLOW; Glucose Urine UA NEG (NEG); Leukocyte Esterase Urine NEG (NEG); Nitrite Urine NEG (NEG); Urine Blood NEG (NEG); Urine Ketones NEG (NEG); Urine Protein NEG (NEG-TRACE)
== END 2022-04-04 12:31 | disposition home or self-care (01) ==
LOC: HO.LAB 12:30
PROVIDERS: PCP Internal Medicine; Visit Provider Nurse Practitioner Family
DX: R10.31 Right lower quadrant pain (principal); R32 Unspecified urinary incontinence
CPT/HCPCS: 36415; 80048; 81003; 85025

== ENCOUNTER 2022-04-26 07:07 | Outpatient (REF) | payer MEDICARE, MEDICAID, SELFPAY ==
--- NOTE | ~2022-04-26 | CT_ITS ---
EXAMINATION: CT ABDOMEN AND PELVIS WITHOUT CONTRAST CLINICAL INFORMATION: Right lower quadrant abdominal COMPARISON: 10/02/2020 TECHNIQUE: Multidetector volumetric imaging was performed from the superior aspect of the liver through the pubic symphysis. Sagittal and coronal reformatted images were obtained on the technologist's workstation. This CT examination was performed using dose optimization techniques as appropriate, variously including the following: *Automated exposure control *Adjustment of mA and/or kV according to patient size (this includes techniques or standardized protocols for targeted exams where dose is matched to indication/reason for exam; i.e. extremities or head) *Use of iterative reconstruction technique DLP: 517.5 mGy-cm FINDINGS: LUNG BASES: The visualized lung bases are unremarkable. LIVER, GALLBLADDER, AND BILIARY TREE: The liver is normal in size, shape, and attenuation. No focal hepatic lesion or biliary ductal dilatation is present. Gallbladder is surgically absent. PANCREAS: Unremarkable. SPLEEN: Unremarkable. ADRENAL GLANDS: Unremarkable. KIDNEYS AND URETERS: There is 1.3 cm cyst in the upper pole of left kidney. BLADDER: Unremarkable. GASTROINTESTINAL TRACT: The small and large bowel are unremarkable. The appendix is unremarkable. ABDOMINAL WALL: No significant hernia is appreciated. LYMPH NODES: Normal. VASCULAR: Unremarkable. PELVIC VISCERA: Uterus is surgically absent. OSSEOUS STRUCTURES: Patient is status post L3-L5 fusion. CT/CT abdomen pelvis wo con IMPRESSION: Normal appendix present. No evidence of diverticulitis. No explanation for right lower quadrant abdominal pain. Status post cholecystectomy and hysterectomy, status post L3-L5 fusion Fleischner guidelines were followed.
[2022-04-26] MEDS: Barium Sulfate Oral (Vanilla) 450 ML ORAL.SUSP 900 ML PO (09:48)
== END 2022-04-26 07:08 | disposition home or self-care (01) ==
LOC: HO.CT 07:07
PROVIDERS: Visit Provider Nurse Practitioner Family
DX: R10.31 Right lower quadrant pain (principal)
CPT/HCPCS: 74176

== ENCOUNTER 2022-05-03 10:56 | Outpatient (REF) | payer MEDICARE, SELFPAY ==
--- NOTE | ~2022-05-03 | MM_ITS ---
EXAMINATION: MM DIAGNOSTIC DIGITAL BREAST TOMOSYNTHESIS, RIGHT CLINICAL INFORMATION: Six-month follow-up of suspicious anterior right breast as well as circumscribed density about the deep inferior medial aspect of the right breast. The lifetime risk of breast cancer based on the Tyrer-Cuzick Model is 1.7%. COMPARISON: Mammography: October 04, 2021 and September 22, 2021 TECHNIQUE: Digital breast tomosynthesis is performed in both the craniocaudal and mediolateral oblique views along with computer-aided detection (CAD). Synthesized 2D images are generated from the tomosynthesis. Additional spot magnification views of the right breast in craniocaudal and 90 degree mediolateral views. FINDINGS: There are scattered areas of fibroglandular density (ACR BI-RADS breast composition Category b). There are no new significant masses, abnormal calcifications, or other abnormalities. Anterior calcifications appear stable. The circumscribed density appears stable. Results are provided to the patient at time of visit by the technologist. MM/MM tomosynthesis diagnostic RT IMPRESSION: There are no significant changes from prior study. ASSESSMENT: BI-RADS 3: Probably Benign RECOMMENDATION: Diagnostic mammography in 6 months. This patient's information was entered into a reminder system with a target due date for their next mammogram.
== END 2022-05-03 10:57 | disposition home or self-care (01) ==
LOC: HO.MAMMO 10:56
PROVIDERS: PCP Internal Medicine; Visit Provider Internal Medicine
DX: R92.2 Inconclusive mammogram (principal)
CPT/HCPCS: 77061; 77065

== ENCOUNTER 2022-07-28 12:12 | Outpatient (REF) | payer MEDICARE, SELFPAY ==
--- NOTE | ~2022-07-28 | XR_ITS ---
EXAMINATION: XR HAND, BILATERAL CLINICAL INFORMATION: Pain within joints. COMPARISON: X-ray of the left hand February 2021. TECHNIQUE: 3 views of each hand. FINDINGS: RIGHT HAND: Interphalangeal Joints: There is advanced osteoarthritis of the 2nd and 3rd DIP joints manifested by severe joint space narrowing and prominent marginal osteophytes. Additional less prominent mild and/or [id number] osteoarthritis of the remaining interphalangeal joints manifested by marginal osteophytes and/or subchondral cystic change. Metacarpophalangeal Joints: Mild osteoarthritis of the 1st, 2nd and 3rd metacarpophalangeal joints manifested by marginal osteophytes and/or subchondral cystic change. First Carpometacarpal Joint: There is advanced osteoarthritis manifested by severe joint space narrowing and marginal osteophytes. The remaining bones, joints and soft tissues are unremarkable. There are no bone erosions. LEFT HAND: Interphalangeal Joints: There is advanced osteoarthritis of the 3rd metacarpophalangeal joint. Moderate osteoarthritis of the IP joint of the thumb and 2nd DIP joint. Lcsl-rm-ywcutoch osteoarthritis of the remaining interphalangeal joints manifested by marginal osteophytes and/or subchondral cystic change. Metacarpophalangeal Joints: Mild osteoarthritis of the 2nd and 4th metacarpophalangeal joints manifested by marginal osteophytes. First Carpometacarpal Joint: There is severe joint space narrowing and marginal osteophytes and subchondral cystic change indicative of advanced osteoarthritis. XR/XR hand LT min 3V IMPRESSION: RIGHT HAND: Osteoarthritis with advanced degenerative changes noted in selective interphalangeal joints and the 1st carpometacarpal joint. LEFT HAND: Osteoarthritis unchanged with severe degenerative changes in the 1st carpometacarpal joint and select interphalangeal joints.
--- NOTE | ~2022-07-28 | XR_ITS ---
EXAMINATION: XR HAND, BILATERAL CLINICAL INFORMATION: Pain within joints. COMPARISON: X-ray of the left hand February 2021. TECHNIQUE: 3 views of each hand. FINDINGS: RIGHT HAND: Interphalangeal Joints: There is advanced osteoarthritis of the 2nd and 3rd DIP joints manifested by severe joint space narrowing and prominent marginal osteophytes. Additional less prominent mild and/or iwxi-nl-[id number] osteoarthritis of the remaining interphalangeal joints manifested by marginal osteophytes and/or subchondral cystic change. Metacarpophalangeal Joints: Mild osteoarthritis of the 1st, 2nd and 3rd metacarpophalangeal joints manifested by marginal osteophytes and/or subchondral cystic change. First Carpometacarpal Joint: There is advanced osteoarthritis manifested by severe joint space narrowing and marginal osteophytes. The remaining bones, joints and soft tissues are unremarkable. There are no bone erosions. LEFT HAND: Interphalangeal Joints: There is advanced osteoarthritis of the 3rd metacarpophalangeal joint. Moderate osteoarthritis of the IP joint of the thumb and 2nd DIP joint. Jxae-vx-psgjajic osteoarthritis of the remaining interphalangeal joints manifested by marginal osteophytes and/or subchondral cystic change. Metacarpophalangeal Joints: Mild osteoarthritis of the 2nd and 4th metacarpophalangeal joints manifested by marginal osteophytes. First Carpometacarpal Joint: There is severe joint space narrowing and marginal osteophytes and subchondral cystic change indicative of advanced osteoarthritis. XR/XR hand RT min 3V IMPRESSION: RIGHT HAND: Osteoarthritis with advanced degenerative changes noted in selective interphalangeal joints and the 1st carpometacarpal joint. LEFT HAND: Osteoarthritis unchanged with severe degenerative changes in the 1st carpometacarpal joint and select interphalangeal joints.
[2022-07-28 12:39] LABS: MANUAL DIFF FLAG NO
[2022-07-28 13:20] LABS: Basophils Percent Auto 0.5 % (0-2); Eosinophils Absolute Auto 0.3 X10*3/uL (0.0-0.4); Eosinophils Percent Auto 4.3 % (0-4); Hematocrit 37.5 % (37.0-47.0); Hemoglobin 12.3 g/dl (12.0-16.0); Imm Gran Abs Auto 0.03 X10*3/uL (0.00-0.03); Imm Gran Pct Auto 0.4 % (0.0-0.4); Lymphocytes Absolute Auto 2.2 X10*3/uL (1.2-4.9); Lymphocytes Percent Auto 29.9 % (20-40); Mean Corpuscular HGB Conc 32.8 g/dl (31.0-35.0); Mean Corpuscular Hemoglobin 31.1 pg (27.0-33.0); Mean Corpuscular Volume 94.9 fL (80.0-98.0); Mean Platelet Volume 12.3 fL (9.4-12.3); Monocytes Absolute Auto 0.6 X10*3/uL (0.1-1.2); Monocytes Percent Auto 7.8 % (2-11); Neutrophils Absolute Auto 4.2 x10*3/uL (2.0-8.3); Neutrophils Percent Auto 57.1 % (45-73); Platelet Count 154 X10*3/uL (160-400); Red Blood Count 3.95 X10*6/uL (4.20-5.50); Red Cell Distribution Width 14.2 % (11.0-16.0); White Blood Count 7.3 X10*3/uL (4.8-10.8)
[2022-07-28 13:53] LABS: Alanine Aminotransferase 33 U/L (0-31); Aspartate Amino Transferase 35 U/L (5-31); C Reactive Protein 0.05 mg/dL (< or = 0.50); Estimated Glomerular Filt Rate 60
[2022-07-28 14:10] LABS: Erythrocyte Sedimentation Rate 10 MM/HR (0-20)
[2022-07-31 07:49] LABS: HBS Num1 1.85 mIU/mL (0-7.99); Hepatitis B Core Antibody Nonreactive (Nonreactive); Hepatitis B Surface Antigen Negative (Negative); ~HepC Num1 0.06 S/CO (0.00-0.79); ~Hepatitis B Surface Antibody NONREACTIVE (Nonreactive); ~Hepatitis C Antibody Nonreactive (Nonreactive)
[2022-08-01 07:26] LABS: Hepatitis A Antibody IgM 0.42 Index (0-0.79); ~Hepatitis A Antibody IgM Nonreactive (Nonreactive)
[2022-08-02 15:32] LABS: TS Negative Control Passed; TS Panel A 0; TS Panel B 0; TS Positive Control Passed; TSpotTB Negative (Negative)
== END 2022-07-28 12:13 | disposition home or self-care (01) ==
LOC: HO.XRAY 12:12
PROVIDERS: PCP Internal Medicine; Visit Provider Nurse Practitioner Family
DX: R76.8 Other specified abnormal immunological findings in serum (principal); M25.50 Pain in unspecified joint; M25.561 Pain in right knee; M79.671 Pain in right foot; E83.52 Hypercalcemia; Z78.0 Asymptomatic menopausal state
CPT/HCPCS: 36415; 73130; 82565; 84450; 84460; 85025; 85652; 86140; 86481; 86704; 86706; 86709; 86803; 87340; 99212

== ENCOUNTER 2022-09-11 13:50 | Outpatient (REF) | payer MEDICARE, MEDICAID, SELFPAY ==
--- NOTE | ~2022-09-11 | XR_ITS ---
EXAMINATION: XR KNEE AP STANDING XR RIGHT KNEE ONE VIEW CLINICAL INFORMATION: Knee pain COMPARISON: 02/01/2022 TECHNIQUE: AP bilateral standing view of the knees. [place] view of the right knee. FINDINGS: AP STANDING VIEW At the left knee, there is moderate narrowing of medial tibiofemoral joint space, marginal osteophyte formation and mild genu varus deformity. Small osteophytes are present at the mildly degenerated lateral tibiofemoral compartment. There is chondrocalcinosis of the lateral meniscus. At the right knee, the visualized femoral and tibial components of the total knee arthroplasty are well-positioned. No osteolysis or fracture around the components. There are scattered atherosclerotic peripheral vascular calcifications. SUNRISE VIEW OF RIGHT KNEE Mild lateral patellar subluxation is noted on this single view. There is no osteolysis or fracture around the patellar arthroplasty component. XR/XR knee standing BI IMPRESSION: * No evidence of loosening of components of the right total knee arthroplasty. * There appears to be mild lateral patellar subluxation on the sunrise view of the right knee. * The osteoarthritis of the left knee is mild at the lateral tibiofemoral compartment and moderate at the medial tibiofemoral compartment.
--- NOTE | ~2022-09-11 | XR_ITS ---
EXAMINATION: XR KNEE AP STANDING XR RIGHT KNEE ONE VIEW CLINICAL INFORMATION: Knee pain COMPARISON: 02/01/2022 TECHNIQUE: AP bilateral standing view of the knees. [place] view of the right knee. FINDINGS: AP STANDING VIEW At the left knee, there is moderate narrowing of medial tibiofemoral joint space, marginal osteophyte formation and mild genu varus deformity. Small osteophytes are present at the mildly degenerated lateral tibiofemoral compartment. There is chondrocalcinosis of the lateral meniscus. At the right knee, the visualized femoral and tibial components of the total knee arthroplasty are well-positioned. No osteolysis or fracture around the components. There are scattered atherosclerotic peripheral vascular calcifications. SUNRISE VIEW OF RIGHT KNEE Mild lateral patellar subluxation is noted on this single view. There is no osteolysis or fracture around the patellar arthroplasty component. XR/XR knee RT 1V IMPRESSION: * No evidence of loosening of components of the right total knee arthroplasty. * There appears to be mild lateral patellar subluxation on the sunrise view of the right knee. * The osteoarthritis of the left knee is mild at the lateral tibiofemoral compartment and moderate at the medial tibiofemoral compartment.
== END 2022-09-11 13:51 | disposition home or self-care (01) ==
LOC: HO.HOSX 13:50
PROVIDERS: Visit Provider Physician Assistant
DX: Z96.651 Presence of right artificial knee joint (principal)
CPT/HCPCS: 73560; 73565; 99202

== ENCOUNTER 2023-02-02 11:45 | Outpatient (REF) | payer MEDICARE, MEDICAID, SELFPAY ==
[2023-02-02 12:05] LABS: MANUAL DIFF FLAG NO
[2023-02-02 14:07] LABS: Basophils Percent Auto 0.5 % (0-2); Eosinophils Absolute Auto 0.2 X10*3/uL (0.0-0.4); Hematocrit 41.6 % (37.0-47.0); Hemoglobin 13.3 g/dl (12.0-16.0); Imm Gran Abs Auto 0.02 X10*3/uL (0.00-0.03); Imm Gran Pct Auto 0.3 % (0.0-0.4); Lymphocytes Absolute Auto 2.2 X10*3/uL (1.2-4.9); Lymphocytes Percent Auto 37.5 % (20-40); Mean Corpuscular Hemoglobin 29.8 pg (27.0-33.0); Mean Corpuscular Volume 93.1 fL (80.0-98.0); Mean Platelet Volume 12.5 fL (9.4-12.3); Monocytes Absolute Auto 0.6 X10*3/uL (0.1-1.2); Monocytes Percent Auto 9.2 % (2-11); Neutrophils Absolute Auto 2.9 x10*3/uL (2.0-8.3); Neutrophils Percent Auto 48.5 % (45-73); Platelet Count 180 X10*3/uL (160-400); Red Blood Count 4.47 X10*6/uL (4.20-5.50); Red Cell Distribution Width 14.5 % (11.0-16.0)
[2023-02-02 14:14] LABS: Appearance Urine Clear; Color Urine Yellow; Glucose Urine UA Negative (Negative); Leukocyte Esterase Urine Small (1+) (Negative); Nitrite Urine Negative (Negative); PH 5.5 (5.0-9.0); UMIC TRIGGER UACC YES; Urine Blood Negative (Negative); Urine Ketones Negative (Negative); Urine Protein Negative (Neg-Trace)
[2023-02-02 14:27] LABS: Bacteria Urine Trace (None Seen); Hyaline Casts Urine 0-2 /LPF (0-2); RBC Urine 0-2 /HPF (0-2); UACC Culture Trigger YES; WBC Urine 0-5 /HPF (0-5)
[2023-02-02 14:48] LABS: Estimated Average Glucose 137 mg/dL; Hemoglobin A1c % 6.4 %
[2023-02-02 15:17] LABS: Creatinine Urine 94.74 mg/dL; Microalbum/Creatinine Ratio Ur 13.7 ug/mg cr
[2023-02-02 15:30] LABS: Alanine Aminotransferase 19 U/L (0-31); Albumin Level 4.3 g/dL (3.5-5.0); Alkaline Phosphatase 87 U/L (39-117); Anion Gap 12 (12-20); Aspartate Amino Transferase 23 U/L (5-31); Bilirubin Total 0.5 mg/dL (0.0-1.0); Blood Urea Nitrogen 13 mg/dL (9-16); Calcium 9.8 mg/dL (8.4-10.2); Carbon Dioxide 27 mmol/L (22-29); Chloride 110 mmol/L (96-108); Cholesterol 132 mg/dL; Estimated Glomerular Filt Rate > 60; Glucose Fasting 88 mg/dL (60-99); HDL Cholesterol 58 mg/dL; LDL Cholesterol Calculated 59 mg/dl; Sodium 144 mmol/L (135-145); TSH reflex Free T4 1.75 uIU/mL (0.32-4.0); Total Protein 6.8 g/dL (6.5-8.0); Triglycerides 79 mg/dL; Vitamin D 25-OH Total 20.4 ng/mL (>30)
== END 2023-02-02 11:46 | disposition home or self-care (01) ==
LOC: HO.LAB 11:45
PROVIDERS: PCP Internal Medicine; Visit Provider Internal Medicine
DX: I10 Essential (primary) hypertension (principal); E11.9 Type 2 diabetes mellitus without complications; E78.00 Pure hypercholesterolemia, unspecified; E55.9 Vitamin D deficiency, unspecified; R82.90 Unspecified abnormal findings in urine
CPT/HCPCS: 36415; 80053; 80061; 81001; 82043; 82306; 83036; 84443; 85025; 87086

== ENCOUNTER 2023-02-23 12:58 | Outpatient (REF) | payer MEDICARE, MEDICAID, SELFPAY ==
--- NOTE | ~2023-02-23 | MM_ITS ---
EXAMINATION: MM DIAGNOSTIC DIGITAL BREAST TOMOSYNTHESIS, BILATERAL CLINICAL INFORMATION: Six-month follow-up right breast calcifications. Yearly screening left breast study. The lifetime risk of breast cancer based on the Tyrer-Cuzick Model is 1.9%. COMPARISON: Mammography: 05/03/2022 and studies dating back to 09/22/2021. TECHNIQUE: Digital breast tomosynthesis is performed in both the craniocaudal and mediolateral oblique views along with computer-aided detection (CAD). Synthesized 2D images are generated from the tomosynthesis. Additional spot magnification views of the right breast in craniocaudal and 90 degree mediolateral views performed. FINDINGS: There are scattered areas of fibroglandular density (ACR BI-RADS breast composition Category b). There are stable parenchymal patterns seen bilaterally without new abnormal dominant mass or new suspicious grouping of microcalcifications. There is stability of grouping of calcifications about the anterior superior right breast. 12 month follow-up diagnostic study is recommended. Results are provided to the patient at time of visit by the technologist. MM/MM tomosynthesis diagnostic BI IMPRESSION: There are no significant changes from prior study. Stable right breast calcifications. ASSESSMENT: BI-RADS 3: Probably Benign. RECOMMENDATION: Diagnostic mammography at time of next annual exam, due in 12 months. This patient's information was entered into a reminder system with a target due date for their next mammogram.
== END 2023-02-23 12:59 | disposition home or self-care (01) ==
LOC: HO.MAMMO 12:58
PROVIDERS: PCP Internal Medicine; Visit Provider Internal Medicine
DX: R92.1 Mammographic calcification found on diagnostic imaging of breast (principal)
CPT/HCPCS: 77062; 77066

== ENCOUNTER → 2023-03-30 09:53 | Outpatient (BNVA) | payer MEDICARE, MEDICAID, SELFPAY | PROVIDERS: PCP Internal Medicine; Visit Provider Nurse Practitioner Family | DX: M51.36 Other intervertebral disc degeneration, lumbar region (principal); M47.816 Spondylosis without myelopathy or radiculopathy, lumbar region; M79.645 Pain in left finger(s); M25.561 Pain in right knee; R22.32 Localized swelling, mass and lump, left upper limb; Z98.1 Arthrodesis status | CPT/HCPCS: 99202 ==

== ENCOUNTER 2023-05-15 06:08 | Outpatient (REF) | payer MEDICARE, MEDICAID, SELFPAY | END 2023-05-15 06:09 | disposition home or self-care (01) | LOC: CF 06:08 | PROVIDERS: Visit Provider Anesthesiology | DX: Z13.89 Encounter for screening for other disorder (principal) ==

== ENCOUNTER 2023-05-16 13:28 | Outpatient (REF) | payer MEDICARE, MEDICAID, SELFPAY ==
--- NOTE | ~2023-05-16 | XR_ITS ---
EXAMINATION: XR LUMBOSACRAL SPINE WITH OBLIQUES CLINICAL INFORMATION: Lumbar spondylosis, without myelopathy or radiculopathy. COMPARISON: None available. TECHNIQUE: AP, both oblique, and lateral views of the lumbar spine. Lateral view of the lumbosacral junction. FINDINGS: Vertebral body heights are normal. There is bony demineralization. There is mild disc space narrowing at T11-T12, T12-L1 and L2-L3, with spondylosis. There have been prior posterior fusions extending from L3 through L5, with intact posterior fixator rods and pedicular screws. No hardware failure or loosening is seen. There is no acute fracture or spondylolisthesis. No instability is seen with flexion or extension. The posterior elements are intact. No spondylolysis defect is appreciated on the oblique views. The paravertebral soft tissues are unremarkable. XR/XR lumbar spine 6V w bending IMPRESSION: 1. There is mild degenerative disc disease at T11-T12, T12-L1 and L2-L3. 2. There is intact orthopedic hardware related to prior L3-L5 posterior fusions. No hardware failure or loosening is seen. 3. There is no acute fracture or spondylolisthesis. No instability is seen with flexion or extension.
[2023-05-16 15:01] LABS: MANUAL DIFF FLAG NO
[2023-05-16 15:32] LABS: Basophils Percent Auto 0.6 % (0-2); Eosinophils Absolute Auto 0.2 X10*3/uL (0.0-0.4); Hematocrit 42.2 % (37.0-47.0); Hemoglobin 13.6 g/dl (12.0-16.0); Imm Gran Abs Auto 0.02 X10*3/uL (0.00-0.03); Imm Gran Pct Auto 0.3 % (0.0-0.4); Lymphocytes Absolute Auto 2.8 X10*3/uL (1.2-4.9); Lymphocytes Percent Auto 42.3 % (20-40); Mean Corpuscular HGB Conc 32.2 g/dl (31.0-35.0); Mean Platelet Volume 12.4 fL (9.4-12.3); Monocytes Absolute Auto 0.6 X10*3/uL (0.1-1.2); Monocytes Percent Auto 8.4 % (2-11); Neutrophils Percent Auto 45.4 % (45-73); Platelet Count 171 X10*3/uL (160-400); Red Blood Count 4.54 X10*6/uL (4.20-5.50); Red Cell Distribution Width 14.7 % (11.0-16.0); White Blood Count 6.6 X10*3/uL (4.8-10.8)
[2023-05-16 15:40] LABS: Estimated Average Glucose 131 mg/dL; Hemoglobin A1c % 6.2 %
[2023-05-16 16:19] LABS: Alanine Aminotransferase 20 U/L (0-31); Albumin Level 4.4 g/dL (3.5-5.0); Alkaline Phosphatase 89 U/L (39-117); Anion Gap 14 (12-20); Aspartate Amino Transferase 30 U/L (5-31); Bilirubin Total 0.4 mg/dL (0.0-1.0); Blood Urea Nitrogen 15 mg/dL (9-16); Calcium 10.1 mg/dL (8.4-10.2); Carbon Dioxide 28 mmol/L (22-29); Chloride 106 mmol/L (96-108); Cholesterol 143 mg/dL; Estimated Glomerular Filt Rate 55; Glucose Fasting 89 mg/dL (60-99); HDL Cholesterol 48 mg/dL; LDL Cholesterol Calculated 63 mg/dl; Potassium 4.6 mmol/L (3.3-5.1); Sodium 143 mmol/L (135-145); Total Protein 7.5 g/dL (6.5-8.0); Triglycerides 160 mg/dL
[2023-05-16 16:36] LABS: TSH reflex Free T4 1.31 uIU/mL (0.32-4.0); Vitamin D 25-OH Total 35.9 ng/mL (>30)
[2023-05-16 16:41] LABS: Folate 9.6 ng/mL (> or = 4.0); Vitamin B12 647 pg/mL (200-900)
[2023-05-16 16:52] LABS: Appearance Urine Clear; Color Urine Yellow; Glucose Urine UA Negative (Negative); Leukocyte Esterase Urine Trace (Negative); Nitrite Urine Negative (Negative); PH 7.5 (5.0-9.0); UMIC TRIGGER UACC YES; Urine Blood Negative (Negative); Urine Ketones Negative (Negative); Urine Protein Negative (Neg-Trace)
[2023-05-16 16:59] LABS: Creatinine Urine 123.03 mg/dL; Microalbum/Creatinine Ratio Ur 6.5 ug/mg cr
[2023-05-16 17:05] LABS: Bacteria Urine Trace (None Seen); Hyaline Casts Urine 0-2 /LPF (0-2); RBC Urine 0-2 /HPF (0-2); Squamous Epithelial Cell Urine 0-2 /HPF (0-2); WBC Urine 0-5 /HPF (0-5)
== END 2023-05-16 13:29 | disposition home or self-care (01) ==
LOC: HO.XRAY 13:28
PROVIDERS: Absent Provider Internal Medicine; PCP Internal Medicine; Visit Provider Orthopaedic Surgery
DX: M47.816 Spondylosis without myelopathy or radiculopathy, lumbar region (principal); M51.36 Other intervertebral disc degeneration, lumbar region; R22.32 Localized swelling, mass and lump, left upper limb; E11.9 Type 2 diabetes mellitus without complications; I10 Essential (primary) hypertension; E55.9 Vitamin D deficiency, unspecified; E78.00 Pure hypercholesterolemia, unspecified; E53.8 Deficiency of other specified B group vitamins; Z98.1 Arthrodesis status
CPT/HCPCS: 36415; 72114; 80053; 80061; 81001; 81003; 82043; 82306; 82607; 82746; 83036; 84443; 85025; 99202

== ENCOUNTER 2023-05-22 06:53 | Outpatient (REF) | payer MEDICARE, MEDICAID, SELFPAY | END 2023-05-22 06:54 | disposition home or self-care (01) | LOC: CF 06:53 | PROVIDERS: PCP Internal Medicine; Visit Provider Anesthesiology | DX: Z13.89 Encounter for screening for other disorder (principal) ==

== ENCOUNTER → 2024-02-26 11:00 | Outpatient (BNV) | payer MEDICARE, SELFPAY | PROVIDERS: PCP Nurse Practitioner; Visit Provider Radiology Diagnostic Radiology | DX: R92.1 Mammographic calcification found on diagnostic imaging of breast (principal) | CPT/HCPCS: 77066; G0279 ==

== ENCOUNTER 2024-02-26 11:25 | Outpatient (REF) | payer MEDICARE, SELFPAY ==
--- NOTE | ~2024-02-26 | MM_ITS ---
EXAMINATION: MM DIAGNOSTIC DIGITAL BREAST TOMOSYNTHESIS, BILATERAL CLINICAL INFORMATION: 12 month follow-up for anterior right breast calcifications, and a small rounded focal asymmetry in the right breast inferior and medial aspect, posterior one third. This had no ultrasound correlate on prior ultrasound. COMPARISON: Mammography: 02/23/2023, 05/03/2022, 10/04/2021, 09/14/2021. Right breast ultrasound 10/04/2021. TECHNIQUE: Digital breast tomosynthesis is performed in both the craniocaudal and mediolateral oblique views along with computer-aided detection (CAD). Synthesized 2D images are generated from the tomosynthesis. In addition, 2-D spot magnification right CC and ML views were obtained, as well as added full-field right CC view. FINDINGS: There are scattered areas of fibroglandular density (ACR BI-RADS breast composition Category b). Calcifications in the anterior right breast are noted to be coarse, with rounded morphology, and have changed little since 2020. These are most consistent with benign dystrophic calcifications, likely relating to degenerating fibroid. There has been no aggressive change. The oval asymmetry in the posterior aspect of the right breast, inferior and medial aspect, is also entirely unchanged from 202. This is benign. Otherwise, there are are no suspicious masses, suspicious grouped calcifications, or areas of architectural distortion in either breast. There are a few scattered dystrophic calcifications in the left breast. There are mild vascular calcifications. The parenchymal pattern is stable from prior exams. There is no skin or axillary abnormality. Results are provided to the patient at time of visit by the technologist. MM/MM tomosynthesis diagnostic BI IMPRESSION: No findings in either breast suspicious for malignancy. Calcifications in the anterior slightly upper right breast are benign, consistent with dystrophic etiology. No further follow-up recommended. Focal asymmetry in the posterior right breast inferomedial aspect is stable, and no further follow-up recommended. Recommend the patient return to routine annual screening. ASSESSMENT: BI-RADS BI-RADS 2 - Benign Findings RECOMMENDATION: 1 year F/U This patient's information was entered into a reminder system with a target due date for their next mammogram.
== END 2024-02-26 11:26 | disposition home or self-care (01) ==
LOC: HO.MAMMO 11:25
PROVIDERS: PCP Nurse Practitioner; Visit Provider Internal Medicine
DX: R92.1 Mammographic calcification found on diagnostic imaging of breast (principal)
CPT/HCPCS: 77062; 77066